=== PATIENT | female | born 2000 | race Caucasian/White ===

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

== ENCOUNTER 2023-04-01 10:01 | Emergency (ER) | payer OTHER, SELFPAY ==
[2023-04-01 10:30] VITALS: BP 149/78; PULSE 93; RESP 18; TEMP 36.6; O2SAT 100
--- NOTE | 2023-04-01 10:41 | ED.URI ---
HPI - URI/Sore Throat General Chief Complaint: Upper Respiratory Infection Stated Complaint: sore throat,Chest congestion Time Seen by Provider: 04/01/23 10:35 Source: patient Mode of arrival: ambulatory Limitations: no limitations History of Present Illness HPI Narrative: Akbar is a 22-year-old female patient presenting to the clinic today with complaints cough, chest congestion, sore throat, and sinus pressure x1 0.5 weeks. She reports she is blowing out some yellow nasal discharge. No fever but has had some headaches. MD elicited complaint: sore throat and nasal congestion Related Data Home Medications Medication Instructions Recorded Confirmed escitalopram oxalate 20 mg tablet mg 04/01/23 norgestrel 0.3 mg-ethinyl tablet 04/01/23 estradiol 30 mcg tablet (Miki (28)) omeprazole 20 mg capsule,delayed mg 04/01/23 release spironolactone 100 mg tablet mg 04/01/23 Allergies Allergy/AdvReac Type Severity Reaction Status Date / Time fluticasone Allergy Intermediate rash Verified 04/01/23 10:23 Latex, Natural Rubber Allergy Intermediate rash Verified 04/01/23 10:23 Sulfa (Sulfonamide Allergy Intermediate Difficulty Verified 04/01/23 10:23 Antibiotics) Breathing Review of Systems Review of Systems: Pertinent positives per HPI. Patient denies any fever, chills, rash, visual changes, dizziness, shortness of breath, chest pain, palpitations, nausea, vomiting, diarrhea, constipation, abdominal pain, or any urinary issues. PMFSH Comments At the time of my signature, I reviewed and agree with the nursing past medical, surgical, social, and family history. There is no relevant family history pertinent to the patient complaint. Exam Narrative: General: Well-developed, morbidly obese, in no apparent distress Head: Normocephalic, atraumatic Eyes: Pupils equally round and reactive to light bilaterally, EOM intact, sclera and conjunctive clear, no discharge, lids normal Ears: TMs intact and clear, ear canals clear, no drainage, grossly hearing normal. Nose: Nares patent, yellow nasal discharge, moderate inflammation, maxillary sinus tenderness. Mouth: Oral pharynx red without lesions or masses, good dentition, MMM. Postnasal drip Neck: Supple, trachea midline, no enlargement of anterior or posterior cervical nodes, no thyroid masses or goiter palpable. Cardio: Regular rate and rhythm, s1 and s2 normal, no murmur appreciated. Resp: Clear to auscultation bilaterally, no rhonchi, rales, wheezing or rubs Course Course Emergency Course: Portions of this record may have been created with voice recognition software. Level of Care: Express Care Visit Vital Signs Vital signs: Vital Signs Temperature 36.6 C 04/01/23 10:30 Pulse Rate 93 04/01/23 10:30 Respiratory Rate 18 04/01/23 10:30 Blood Pressure 149/78 H 04/01/23 10:30 Pulse Oximetry 100 04/01/23 10:30 Oxygen Delivery Room Air 04/01/23 10:30 Temperature 36.6 C 04/01/23 10:30 Pulse Rate 93 04/01/23 10:30 Respiratory Rate 18 04/01/23 10:30 Blood Pressure 149/78 H 04/01/23 10:30 Pulse Oximetry 100 04/01/23 10:30 Oxygen Delivery Room Air 04/01/23 10:30 Vital signs reviewed MDM - URI/Sore Throat MDM Narrative Medical decision making narrative: At the time of visit patient is resting comfortably on the exam table. Patient appears to be nontoxic. I suspect patient has acute bacterial rhinosinusitis. Lung sounds are clear. Prescription for Augmentin and prednisone was sent to the pharmacy. Supportive measures were discussed with the patient and they voiced understanding discharge instructions and agrees to treatment plan. Return precautions reviewed Differential Diagnosis Differential diagnosis: Likely upper respiratory infection, otitis media, sinusitis, viral infection, bronchitis, influenza, pharyngitis and other (COVID) Discharge Plan Discharge Clinical Impression: Acute bacterial rhin
== END 2023-04-01 10:55 | disposition home or self-care (01) ==
PROVIDERS: Emergency Provider Nurse Practitioner Family; PCP Family Medicine
DX: J01.80 Other acute sinusitis (principal); B96.89 Other specified bacterial agents as the cause of diseases classified elsewhere
CPT/HCPCS: 87081; 87880; 99213; G0463